=== PATIENT | female | born 1970 | race Caucasian/White ===

== ENCOUNTER 2018-11-09 10:52 | Emergency (ER) | payer OTHER, MEDICAID ==
[2018-11-09] MEDS: DEXAMETHASONE 4 MG TAB PO (11:25)
[2018-11-09] MEDS: ACETAMINOPHEN 325 MG TAB PO (11:36)
== END 2018-11-09 12:19 | disposition home or self-care (01) ==
LOC: FTE 10:52
DX: R05 Cough (principal)
CPT/HCPCS: 71045; 99283-25